=== PATIENT | male | born 2005 | race Two or more races ===

== ENCOUNTER 2025-06-21 22:10 | Emergency (ER) | payer SELFPAY ==
--- NOTE | 2025-06-21 22:17 | EDNOTE_ITS ---
ED Allergic Reaction RME/HPI General Chief complaint: Allergic Reaction Stated complaint: ALLERGIC REACTION Time Seen by Provider: 06/21/25 22:35 Arrival date/time: 06/21/25 22:10 RME / HPI RME / HPI narrative: See [facility] for Dr. Gill's HPI documentation. Related Data Previous Rx's ?Medication ?Instructions ?Recorded albuterol sulfate 90 mcg/actuation 2 puff inhalation Q 6H PRN 06/22/25 aerosol inhaler shortness of breath or wheez ing #8.5 grams epinephrine 0.3 mg/0.3 mL 0.3 ml subcut .once PRN 06/13 injection, auto-injector (EpiPen) hypersensitivity rosangela ction #2 ea prednisone 50 mg tablet 50 mg PO BID 3 days #6 tabs 06/22/25 Allergies Allergy/AdvReac Type Severity Reaction Status Date / Time No Known Allergies Allergy Verified 06/21/25 22:12 Review of Systems Review of Systems Systems Reviewed: All systems reviewed, normal except as documented Past Medical History Social History SMOKING STATUS: Never smoker ED Exam Narrative Physical exam: See [facility] for Dr. Gill's physical exam documentation. Course Quality Measures none Orders Category Date Time Status Bedside COVID-19 Antigen Test NOW Care 06/21/25 22:22 Active Bedside Influenza A&B Antigen Test NOW Care 06/21/25 22:22 Completed Saline [Insert IV] NOW Care 06/21/25 22:22 Active XR chest 1V portable Stat Exams 06/21/25 22:24 Completed Alcohol, Blood Medical Stat Lab 06/21/25 22:30 Completed Bilirubin,Direct Stat Lab 06/21/25 22:30 Completed CBC Stat Lab 06/21/25 22:30 Completed CMP [Comprehensive Metabolic Panel] Stat Lab 06/21/25 22:30 Completed Drug Screen,Urine Stat Lab 06/22/25 02:40 Completed Magnesium Stat Lab 06/21/25 22:30 Completed TSH [Thyroid Stimulating Hormone] Stat Lab 06/21/25 22:30 Completed Albuterol/Ipratr Rt Adrianne [Duoneb Rt Adrianne] Med 06/21/25 22:22 Discontinued 3 ml INH X1 ONE DiphenhydrAMINE INJ [Benadryl Inj] Med 06/21/25 22:22 Discontinued 50 mg IVP X1 STA DiphenhydrAMINE INJ [Benadryl Inj] Med 06/22/25 02:00 Discontinued 50 mg IVP X1 STA Famotidine Inj [Pepcid Inj] Med 06/21/25 22:22 Discontinued 20 mg IVP X1 ONE KCL 10% Liq UDC 15 ML Med 06/21/25 23:41 Discontinued 40 meq PO X1 ONE MethylPREDNISolone.* [SoluMEDROL Inj] Med 06/21/25 22:22 Discontinued 125 mg IVP X1 ONE MethylPREDNISolone.* [SoluMEDROL Inj] Med 06/22/25 02:00 Discontinued 125 mg IVP X1 ONE Ondansetron Inj [Zofran Inj] Med 06/21/25 22:22 Discontinued 4 mg IVP X1 ONE Ringers Lactated 1000 ml [Lactated Ringers] 1,000 ml Med 06/22/25 01:59 Active IV 250 mls/hr Sodium Chloride 0.9% 1000 ml [Ns] 1,000 ml Med 06/21/25 22:22 Discontinued IV 999 mls/hr Vital Signs Vital signs: Vital Signs Temperature 98.9 F 06/21/25 22:28 Pulse Rate 120 H 06/21/25 22:28 Respiratory Rate 18 06/21/25 22:28 Blood Pressure 133/62 H 06/21/25 22:28 Pulse Oximetry (%) 100 06/21/25 22:28 Oxygen Delivery Method Room Air 06/21/25 22:28 Allergic Reaction MDM Narrative MDM Narrative:: This section includes all my notes and documentations, including HPI, PE, and ED course. Donaldo Gill MD HPI: 19yo male here with possible allergic reaction just [employer]. 30 minutes after taking ibuprofen, he reports facial swelling, diffuse rash, itching, throat tightness, and shortness of breath. He reports several days of cough and subjective fever and chills and severe body aches. Reason why he took ibuprofen. No other complaints. ROS: All negative except as documented in HPI. Physical Exam: General: Alert and oriented. No acute distress when remaining still. HEENT: Severe angioedema noted. Patent airway. Pharynx normal. TM normal bilaterally. Neck: Supple. Heart: RRR. Lungs: No respiratory distress. Mildly decreased air movement with scattered wheezing. Abdomen: Soft and nontender. Skin: Warm and dry. Diffuse and severe hives noted. Neuro: Alert and oriented X 3. I reviewed all diagnostic test results. My interpretation of the chest x-ray is NAD. Blood tests remarkable for K 3.3, Alcohol 44.5. COVID positive. Influenza negative. At this point, diagnoses include: Allergic reaction COVID Treatment here included: IV fluid Duoneb Benadryl 50 mg IV Pepcid 20 mg IV Solumedrol 125 mg IV Zofran 4 mg IV Oral KCl 40 mEq Significant improvement noted. Recommend outpatient management. Based on my best medical judgment, made decision no further evaluation or treatment indicated at this time. Patient understands and agrees to the discharge instructions customized and printed, see below. Discharge instructions from Dr. Gill: 1. You were treated today for severe allergic reaction and COVID. 2. To help prevent the reaction going into your airways and your throat, take prednisone as prescribed. 3. And take Benadryl 50 mg every 6-8 hours today and tomorrow then as needed. 4. Increase oral fluid and maintain clear urine. If dark or yellow, increase oral fluid. This will help eliminate any allergens in your blood system. 5. EpiPen as needed. 6. No physical exertion for 3 days to help rest the lungs. No smoking or exposure to smoking or pets or dust or humidity. Albuterol 2 puffs every 4-6 hours for 3 days to help keep the airways open. Then as needed for cough or shortness of breath. 7. See a private doctor on 06/23/2025 for recheck and further care. Ask for help until you are completely better. Ask for a referral to see an equalizer operator so you can be tested to know what to avoid in the future. This is extremely important. Avoid ibuprofen until cleared by a doctor taking care of you. 8. Seek immediate medical care with worsening, breathing difficulty, or with any concerns. Donaldo Gill MD Patient data External records reviewed:: [facility] previous records (Per chart review, patient has no previous ED visits or admissions to this facility.) Clinical information provided by:: patient Social determinants that could affect healthcare access:: none Patient has the following chronic illnesses:: none How is presenting disease/condition affected by chronic disease/condition?: no chronic disease Evaluation data The following diagnostics were reviewed and interpreted by me:: lab results and radiology exam(s) Lab and/or radiology exams considered but not ordered:: none Interpretation Summary: I reviewed all diagnostic test results. My interpretation of the chest x-ray is NAD. Blood tests remarkable for K 3.3, Alcohol 44.5. COVID positive. Influenza negative. Medications / Prescriptions Medications or Prescriptions considered but not ordered:: none Medication administrations:: Medication Administration History Lactated Ringer's (Lactated Ringers) 1,000 mls @ 250 mls/hr IV .Q4H ONE Stop: 06/22/25 05:58 Last Admin: 06/22/25 02:07 Dose: 250 mls/hr Documented By: JOSHUA Discontinued Medications Albuterol/Ipratropium (Albuterol/Ipratropium (Duoneb) Rt Adrianne 3 Ml Nebu) 3 ml INH X1 ONE Stop: 06/21/25 22:23 Last Admin: 06/21/25 22:37 Dose: 3 ml Documented By: JAZMIN Diphenhydramine HCl (Diphenhydramine Inj 50 Mg/Ml Vial) 50 mg IVP X1 STA Stop: 06/21/25 22:23 Last Admin: 06/21/25 22:37 Dose: 50 mg Documented By: MICKEY Diphenhydramine HCl (Diphenhydramine Inj 50 Mg/Ml Vial) 50 mg IVP X1 STA Stop: 06/22/25 02:01 Last Admin: 06/22/25 02:06 Dose: 50 mg Documented By: JOSHUA Famotidine (Famotidine Inj 10 Mg/Ml Vial 2 Ml) 20 mg IVP X1 ONE Stop: 06/21/25 22:23 Last Admin: 06/21/25 22:36 Dose: 20 mg Documented By: MICKEY Sodium Chloride (Ns) 1,000 mls @ 999 mls/hr IV .Q1H1M ONE Stop: 06/21/25 23:22 Last Infusion: 06/22/25 01:03 Dose: Infused Documented By: Admin: 06/21/25 22:38 Dose: 999 mls/hr Documented By: MICKEY Methylprednisolone Sodium Succinate (Methylprednisolone Sod Succ 62.5 Mg/Ml 2ml Vial) 125 mg IVP X1 ONE Stop: 06/21/25 22:23 Last Admin: 06/21/25 22:37 Dose: 125 mg Documented By: MICKEY Methylprednisolone Sodium Succinate (Methylprednisolone Sod Succ 62.5 Mg/Ml 2ml Vial) 125 mg IVP X1 ONE Stop: 06/22/25 02:01 Last Admin: 06/22/25 02:06 Dose: 125 mg Documented By: JOSHUA Ondansetron HCl (Ondansetron Inj 2 Mg/Ml Inj 2 Ml) 4 mg IVP X1 ONE; Protocol Stop: 06/21/25 22:23 Last Admin: 06/21/25 22:37 Dose: 4 mg Documented By: MICKEY Potassium Chloride (Potassium Chloride 10% 20 Meq/15 Ml Udc) 40 meq PO X1 ONE Stop: 06/21/25 23:42 Last Admin: 06/22/25 01:01 Dose: 40 meq Documented By: JOSHUA Treatment here included: IV fluid Duoneb Benadryl 50 mg IV Pepcid 20 mg IV Solumedrol 125 mg IV Zofran 4 mg IV Oral KCl 40 mEq Consultations Consultation(s) initiated? (list below): No Diagnosis Differential Diagnosis allergic reaction: anaphylaxis, allergic reaction and angioedema Most likely diagnosis given after review of the tests above:: Allergic reaction, COVID Admission Indicated Admission indicated?: not indicated Explain why admission is indicated or not indicated:: With significant improvement and no condition needing emergent intervention, there was no indication for admission. Admission Request Was there a request for admission?: No Disposition Plan Disposition Plan: Discharge Discharge Attestation Discharge Attestation: The patient and all family members were given an opportunity to ask questions and understood the discharge instructions. Discharge instructions specifically effects, indications for sooner follow up or return to the emergency department, and the expected course of current diagnosis. Patient condition: Stable Discharge Plan Plan Patient Disposition: HOME (Self Care) Prescriptions/Referrals Prescriptions/Med Rec: New prednisone 50 mg tablet 50 mg PO BID 3 Days Qty: 6 0RF albuterol sulfate 90 mcg/actuation HFA aerosol inhaler 2 puff inhalation Q6H PRN (Reason: shortness of breath or wheezing) Qty: 8.5 0RF epinephrine [EpiPen] 0.3 mg/0.3 mL auto-injector 0.3 ml subcut .once PRN (Reason: hypersensitivity reaction) Qty: 2 0RF Problem List Clinical Impression: Allergic reaction, COVID Patient/Caregiver Discharge Instructions Discharge Activity: activity as tolerated Education Materials: COVID-19 Home Care, ED General Allergic Reactions Additional Instructions: Discharge instructions from Dr. Gill: 1. You were treated today for severe allergic reaction and COVID. 2. To help prevent the reaction going into your airways and your throat, take prednisone as prescribed. 3. And take Benadryl 50 mg every 6-8 hours today and tomorrow then as needed. 4. Increase oral fluid and maintain clear urine.? If dark or yellow, increase oral fluid.? This will help eliminate any allergens in your blood system. 5. EpiPen as needed. 6. No physical exertion for 3 days to help rest the lungs. No smoking or exposure to smoking or pets or dust or humidity. Albuterol 2 puffs every 4-6 hours for 3 days to help keep the airways open. Then as needed for cough or shortness of breath. 7. See a private doctor on 06/23/2025 for recheck and further care. Ask for help until you are completely better. Ask for a referral to see an equalizer operator so you can be tested to know what to avoid in the future. This is extremely important. Avoid ibuprofen until cleared by a doctor taking care of you. 8. Seek immediate medical care with worsening, breathing difficulty, or with any concerns. Print Language: Citizen Of [place] Stand Alone Forms: [facility] Award Info., Patient Portal Info Letter
--- NOTE | 2025-06-21 22:24 | XR_ITS ---
Examination: AP chest single view Technique one AP portable upright chest single view Date and time: June 21, 2025 11:29 PM Indications: Facial swelling shortness of breath dizziness post ibuprofen administration 30 minutes ago Findings: Normal heart size Lungs are clear. Osseous structures are intact Impression: No active disease
[2025-06-21 22:28] VITALS: BP 133/62; PULSE 120; RESP 18; TEMP 37.2; O2SAT 100
[2025-06-21] MEDS: FAMOTIDINE INJ 10 MG/ML VIAL 2 ML 20 MG IVP (22:36)
[2025-06-21] MEDS: MethylPREDNISolone SOD SUCC 62.5 MG/ML 2ML VIAL 125 MG IVP (22:37)
[2025-06-21] MEDS: ONDANSETRON INJ 2 MG/ML INJ 2 ML 4 MG IVP (22:37)
[2025-06-21] MEDS: ALBUTEROL/IPRATROPIUM (Duoneb) RT SOL 3 ML NEBU INH (22:37)
[2025-06-21 22:38] VITALS: PULSE 100; RESP 18; O2SAT 100
[2025-06-21] MEDS: SODIUM CHLORIDE 0.9% 1000 ML 1,000 ML 999 ML IV (22:38)
[2025-06-21 22:43] LABS: Basophils # (Auto) 0.0 Thou/mm3 (0.0-0.2); Basophils % (Auto) 0 % (0-2.5); Eosinophils # (Auto) 0.1 Thou/mm3 (0.0-0.5); Eosinophils % (Auto) 2 % (0-10); Hematocrit 43.3 % (41.0-53.0); Hemoglobin 15.5 g/dL (13.5-16.0); Immature Granulocytes Auto 0.02 Thou/mm3 (0.00-0.00); Lymphocytes # (Auto) 2.1 Thou/mm3 (1.0-4.8); Lymphocytes % (Auto) 40 % (10-50); Mean Corpuscular HGB Conc 35.8 g/dl (31.0-37.0); Mean Corpuscular Hemoglobin 32.1 pg (25.0-35.0); Mean Corpuscular Volume 90 fL (80-100); Monocytes # (Auto) 0.4 Thou/mm3 (0.0-0.8); Monocytes % (Auto) 8 % (0-12); Neutrophils # (Auto) 2.6 Thou/mm3 (1.8-7.7); Neutrophils % (Auto) 50 % (37-80); Nucleated Red Blood Cell # 0.00 Thou/mm3 (0.00-0.00); Nucleated Red Blood Cell % 0 /100 WBC (0); Platelet Count 301 Thou/mm3 (140-440); RDW Standard Deviation 39.8 fL (35.1-43.9); Red Blood Count 4.83 Miln/mm3 (4.50-5.90); White Blood Count 5.1 Thou/mm3 (3.8-10.6)
[2025-06-21 23:05] LABS: Alanine Aminotransferase 15 U/L (10-49); Albumin, Serum 4.2 gm/dL (3.5-5.0); Albumin/Globulin Ratio 1.8 (1.2-2.2); Alcohol, Blood Medical 44.5 mg/dL (0-10.0); Alkaline Phosphatase 82 U/L (46-116); Anion Gap 14 (7-16); Aspartate Amino Transferase 29 U/L (0-34); BUN/Creatinine Ratio 9 Ratio (12-20); Bilirubin,Direct 0.1 mg/dL (0.0-0.3); Bilirubin,Total 0.3 mg/dL (0.3-1.2); Blood Urea Nitrogen 9 mg/dL (9-23); Calcium 8.4 mg/dL (8.3-10.6); Calcium (Corrected) 8.4 mg/dL (8.5-10.1); Carbon Dioxide 22.7 mMol/L (20.0-31.0); Chloride 104 mMol/L (98-107); Creatinine (Component) 1.0 mg/dL (0.6-1.3); Globulin 2.3 gm/dL (2.3-3.5); Glucose 153 mg/dL (74-106); Magnesium 1.9 mg/dL (1.6-2.6); Osmolality,Calculated 282 (275-295); Potassium 3.3 mMol/L (3.4-5.1); Sodium 141 mMol/L (136-145); Thyroid Stimulating Hormone 3.21 uIU/mL (0.55-4.78); Total Protein 6.5 gm/dL (5.7-8.2); eGFR > 60 See Note
[2025-06-21 23:43] VITALS: BP 124/74; PULSE 107; RESP 18; TEMP 36.9; O2SAT 100
[2025-06-22] MEDS: POTASSIUM CHLORIDE 10% 20 MEQ/15 ML UDC 40 MEQ PO (01:01)
[2025-06-22] MEDS: MethylPREDNISolone SOD SUCC 62.5 MG/ML 2ML VIAL 125 MG IVP (02:06)
[2025-06-22] MEDS: RINGERS LACTATED 1000 ML 1,000 ML 250 ML IV (02:07)
[2025-06-22 03:00] VITALS: BP 118/80; PULSE 106; RESP 18; TEMP 36.8; O2SAT 100
[2025-06-22 03:01] LABS: Amphetamine/Methamp Scrn,U Negative (Negative); Barbiturate Screen,Urine Negative (Negative); Benzodiazepines Screen,Urine Negative (Negative); Benzoylecgonine Screen, Ur Negative (Negative); Fentanyl Screen,Urine Negative (Negative); Opiate Screen,Urine Negative (Negative); THC Screen,Urine Positive (Negative)
[2025-06-22 03:43] VITALS: BP 136/84; PULSE 94; RESP 18; TEMP 37.2; O2SAT 98
== END 2025-06-22 03:43 | disposition home or self-care (01) ==
LOC: SERX 06-22 04:17
PROVIDERS: Emergency Provider Emergency Medicine
DX: U07.1 COVID-19 (principal); T78.40XA Allergy, unspecified, initial encounter
CPT/HCPCS: 36415; 71045; 80053; 80307; 80320; 82248; 83735; 84443; 85025; 87400; 87811; 94640; 96361; 96374; 96375; 96376; 99283; A9270; J1200; J2405; J2919; J3490; J7030; J7120; G0480